=== PATIENT | female | born 1980 | race Caucasian/White ===

== ENCOUNTER 2018-03-19 11:42 | Emergency (ER) | payer OTHER | END 2018-03-19 13:32 | disposition home or self-care (01) | LOC: FTE 11:42 | DX: S91.111A Laceration without foreign body of right great toe without damage to nail, initial encounter (principal); W20.8XXA Other cause of strike by thrown, projected or falling object, initial encounter; Y92.9 Unspecified place or not applicable | CPT/HCPCS: 73660; 99283-25 ==

== ENCOUNTER 2018-06-25 12:18 | Emergency (ER) | payer OTHER | END 2018-06-25 13:54 | disposition home or self-care (01) | LOC: FTE 12:18 | DX: S70.361A Insect bite (nonvenomous), right thigh, initial encounter (principal); W57.XXXA Bitten or stung by nonvenomous insect and other nonvenomous arthropods, initial encounter; Y92.9 Unspecified place or not applicable | CPT/HCPCS: 36415; 86788; 86789; 99283 ==